=== PATIENT | female | born 2000 | race Caucasian/White ===

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

== ENCOUNTER 2021-03-14 15:15 | Emergency (ER) | payer MEDICAID ==
[~2021-03-14] VITALS: Ht 167.6 cm; Wt 64.0 kg
[2021-03-14 15:31] VITALS: BP 104/62
--- NOTE | 2021-03-14 15:54 | NUR ---
PT AMBULATED TO ROOM 12
--- NOTE | 2021-03-14 16:13 | NUR ---
DR. ROBLERO BEDSIDE EVALUATING PT
--- NOTE | 2021-03-14 16:20 | NUR ---
21 Y/O FEMALE C/O RASH TO RIGHT AXILLAE AND GROIN [id number], TODAY BURNING PAIN / X1DAY. PT STATES SHE TOOK ABX AND TOPICALS WITH NO RELIEF. DENIES N/V, DENIES FEVER/CHILLS. DENIES PMH NKA
--- NOTE | 2021-03-14 16:33 | NUR ---
Female [employer] accompanied female patient for Pelvic Exam.
[2021-03-14] MEDS ORDERED: HYD1C TP (16:59)
[2021-03-14] MEDS ORDERED: LOTRC TP (16:59)
[2021-03-14 17:37] VITALS: BP 107/52
--- NOTE | 2021-03-14 17:38 | NUR ---
Patient discharged with v/s stable. Written and verbal after care instructions given and explained. Patient alert, oriented and verbalized understanding of instructions. Ambulatory with steady gait. All questions addressed prior to discharge. ID band removed. Patient advised to follow up with PMD. Rx of HYDROCORTISONE AND BETAMETHASONE DIPROPIONATE given. Patient educated on indication of medication including possible reaction and side effects. Opportunity to ask questions provided and answered.
== END 2021-03-14 17:30 | disposition home or self-care (01) ==
LOC: MED 15:15
DX: R21 Rash and other nonspecific skin eruption (principal)
CPT/HCPCS: 81002; 81025; 99283

== ENCOUNTER 2021-06-20 19:03 | Emergency (ER) | payer MEDICAID ==
[~2021-06-20] VITALS: Ht 167.6 cm; Wt 63.5 kg
[~2021-06-20 19:03] MED LIST: HYD1C TP; LOTRC TP
[2021-06-20 19:46] VITALS: BP 109/68
--- NOTE | 2021-06-20 19:48 | NUR ---
TO LOBBY A/W BED AMBULATORY
[2021-06-20] MEDS ORDERED: ONDANSETRON 4 MG ODT PO ONE (20:05)
[2021-06-20] MEDS ORDERED: ACETAMINOPHEN 325 MG TAB PO ONE (20:05)
[2021-06-20] MEDS ORDERED: ONDA-188 SL (20:06)
[2021-06-20] MEDS ORDERED: ACET-2619 PO (20:06)
--- NOTE | 2021-06-20 20:12 | NUR ---
Patient discharged with v/s stable. Written and verbal after care instructions given FOR VOMITING AND DIARRHEA and explained. Patient alert, oriented and verbalized understanding of instructions. Ambulatory with steady gait. All questions addressed prior to discharge. ID band removed. Patient advised to follow up with PMD. Rx of TYNENOL AND ZOFRAN given. Patient educated on indication of medication including possible reaction and side effects. Opportunity to ask questions provided and answered.
[2021-06-20 20:15] VITALS: BP 111/70
== END 2021-06-20 20:12 | disposition home or self-care (01) ==
LOC: MED 19:03
DX: R11.10 Vomiting, unspecified (principal); R19.7 Diarrhea, unspecified; D64.9 Anemia, unspecified; Z79.899 Other long term (current) drug therapy
CPT/HCPCS: 99283; Q0162

== ENCOUNTER 2021-11-17 08:15 | Emergency (ER) | payer MEDICAID ==
[~2021-11-17] VITALS: Ht 167.6 cm; Wt 63.7 kg
[~2021-11-17 08:15] MED LIST changes: +ACET-2619 PO; +ONDA-188 SL
[2021-11-17 08:23] VITALS: BP 108/56
--- NOTE | 2021-11-17 08:34 | NUR ---
DR. DE BEDSIDE EVALUATING PT
--- NOTE | 2021-11-17 08:34 | NUR ---
21Y FEMALE BIB SELF PRESENTS TO ED WITH MIGRANE X1 MONTH AND CONSITPATION. PT STATES "SHE HAS BEEN EXPERINCING CONTINOUS HEADACHE X1 MONTH THAT HAS NOT RESOLVED ITSELF." PT STATED SHE TOOK IBUPROFEN THIS AM WHICH PROVIDED RELIEF AND CURRENTLY DENIES ANY PAIN. PER PATIENT WHEN SHE EXPERINCING THE HEADACHE "SHE FEELS IT BEHIND HER EYES AND SUDDEN MOVEMENT MAKES IT WORSE." PT ALSO HAS C/O CONSTIPATION X1 WEEK. PT STATED LAST BM WAS THIS AM, BUT FEELS LIKE SHE ISN'T ABLE TO GO TO THE RESTROOM WHEN NEEDED. ABDOMEN IS SOFT/NON-TENDER. DENIES N/V/D; SKIN IS PINK/WARM/DRY; AAOX4 WITH EVEN AND STEADY GAIT; LUNGS CLEAR BL; HR EVEN AND REGULAR; PT DENIES ANY FEVER, CP, SOB, OR COUGH AT THIS TIME; PATIENT STATES PAIN OF 0/10 AT THIS TIME; VSS; PATIENT POSITIONED FOR COMFORT; HOB ELEVATED; BEDRAILS UP X2; BED DOWN. ER MD MADE AWARE OF PT STATUS. PMH: MIGRANES NKA
--- NOTE | 2021-11-17 09:37 | NUR ---
lab at bedside
[2021-11-17 09:52] LABS: BASOPHILS % (AUTO) 0.3 % (0.0-2.0); EOSINOPHILS % (AUTO) 0.8 % (0.0-4.0); HEMATOCRIT 38.1 % (36-48); HEMOGLOBIN 12.3 g/dL (12.0-16.0); LYMPHOCYTES # (AUTO) 1.3 K/uL (2.5-16.5); LYMPHOCYTES % (AUTO) 25.5 % (20.5-51.1); MEAN CORPUSCULAR HEMOGLOBIN 26 pg (27-31); MEAN CORPUSCULAR HGB CONC 32 g/dL (33-37); MEAN CORPUSCULAR VOLUME 79.2 fL (80-94); MONOCYTES # (AUTO) 0.3 K/uL (0.8-1.0); MONOCYTES % (AUTO) 6.8 % (1.7-9.3); NEUTROPHILS # (AUTO) 3.3 K/uL (1.8-7.7); NEUTROPHILS % (AUTO) 66.6 % (42.2-75.2); PLATELET COUNT (AUTO) 192 K/uL (140-450); RED BLOOD CELL COUNT(AUTO) 4.81 MIL/uL (4.20-5.40); WHITE BLOOD COUNT (AUTO) 4.9 K/uL (4.5-11.0)
[2021-11-17 10:08] LABS: ALBUMIN 3.3 g/dL (3.4-5.0); ANION GAP 10.7 (8-16); CARBON DIOXIDE 25.8 mmol/L (21-32); CREATININE 0.5 mg/dL (0.6-1.3); POTASSIUM 3.5 mmol/L (3.5-5.1); THYROID STIMULATING HORMONE 1.14 uIU/mL (0.34-3.74); TOTAL BILIRUBIN 0.3 mg/dL (0.0-1.0)
--- NOTE | 2021-11-17 10:08 | NUR ---
Patient appears to be resting comfortably in bed. Vital Signs within normal limits. Respirations even and unlabored.
[2021-11-17] MEDS ORDERED: IBUP-1842 PO (10:49)
[2021-11-17 10:57] VITALS: BP 110/62
== END 2021-11-17 10:57 | disposition home or self-care (01) ==
LOC: MED 08:15
DX: R51.9 Headache, unspecified (principal); K59.00 Constipation, unspecified; Z79.1 Long term (current) use of non-steroidal anti-inflammatories (NSAID); Z79.899 Other long term (current) drug therapy
CPT/HCPCS: 36415; 80053; 81002; 81025; 84443; 85025; 99283

== ENCOUNTER 2023-07-05 10:10 | Emergency (ER) | payer MEDICAID ==
[~2023-07-05] VITALS: Ht 167.6 cm; Wt 69.9 kg
[~2023-07-05 10:10] MED LIST changes: +IBUP-1842 PO
[2023-07-05 10:14] VITALS: BP 117/70; PULSE 88; RESP 20; TEMP 98.3; O2SAT 98
[2023-07-05 11:47] LABS: FLU A ANTIGEN negative (NEGATIVE); FLU B ANTIGEN negative (NEGATIVE)
[2023-07-05 11:58] LABS: APPEARANCE,URINE CLEAR (CLEAR); BILIRUBIN,URINE NEGATIVE (NEGATIVE); BLOOD, URINE NEGATIVE (NEGATIVE); COLOR,URINE YELLOW (YELLOW); LEUKOCYTE ESTERASE ,URINE NEGATIVE (NEGATIVE); NITRITE, URINE NEGATIVE (NEGATIVE); PROTEIN,URINE NEGATIVE (NEGATIVE); UGLUCOSE NEGATIVE (NEGATIVE); UROBILINOGEN,URINE 0.2 EU/dL (0.2 - 1)
[2023-07-05] MEDS ORDERED: KETOROLAC 30 MG/ML VIAL IM ONE (12:20)
[2023-07-05] MEDS ORDERED: NAPR-1704 PO (12:29)
[2023-07-05] MEDS ORDERED: BPM/-9 PO (12:29)
[2023-07-05] MEDS ORDERED: LIDO1ADH53 TP (12:29)
[2023-07-05] MEDS ORDERED: SUD30 PO (12:29)
[2023-07-05 12:54] VITALS: BP 107/65; PULSE 77; RESP 17; TEMP 98.2; O2SAT 99
== END 2023-07-05 12:54 | disposition home or self-care (01) ==
LOC: MED 10:10
DX: J06.9 Acute upper respiratory infection, unspecified (principal); Z20.822 Contact with and (suspected) exposure to COVID-19; M54.42 Lumbago with sciatica, left side; E11.9 Type 2 diabetes mellitus without complications; Z79.899 Other long term (current) drug therapy; Z79.1 Long term (current) use of non-steroidal anti-inflammatories (NSAID)
CPT/HCPCS: 81003; 81025; 87426; 87804; 96372; 99283; J1885

== ENCOUNTER 2024-02-19 11:03 | Emergency (ER) | payer MEDICAID ==
[~2024-02-19] VITALS: Ht 167.6 cm; Wt 69.2 kg
[~2024-02-19 11:03] MED LIST changes: +BPM/-9 PO; +LIDO1ADH53 TP; +NAPR-1704 PO; +SUD30 PO
[2024-02-19 11:31] VITALS: BP 109/63; PULSE 89; RESP 17; TEMP 98.1; O2SAT 98
[2024-02-19 11:44] VITALS: BP 109/63; PULSE 89; RESP 17; TEMP 98.1; O2SAT 98
[2024-02-19 12:13] LABS: APPEARANCE,URINE CLEAR (CLEAR); BILIRUBIN,URINE NEGATIVE (NEGATIVE); BLOOD, URINE NEGATIVE (NEGATIVE); COLOR,URINE YELLOW (YELLOW); LEUKOCYTE ESTERASE ,URINE NEGATIVE (NEGATIVE); NITRITE, URINE NEGATIVE (NEGATIVE); PH,URINE 7.5 (5.0-9.0); PROTEIN,URINE NEGATIVE (NEGATIVE); UGLUCOSE NEGATIVE (NEGATIVE); UROBILINOGEN,URINE 0.2 EU/dL (0.2 - 1)
[2024-02-19] MEDS: KETOROLAC 30 MG/ML VIAL IM ONE (12:26)
== END 2024-02-19 12:55 | disposition home or self-care (01) ==
LOC: MED 11:03
DX: R51.9 Headache, unspecified (principal); M54.2 Cervicalgia; E11.9 Type 2 diabetes mellitus without complications; Z79.899 Other long term (current) drug therapy
CPT/HCPCS: 81003; 81025; 96372; 99283; J1885